=== PATIENT | male | born 1985 | race Caucasian/White ===

== ENCOUNTER 2022-06-11 14:28 | Emergency (ER) | payer BC | END 2022-06-11 15:50 | disposition home or self-care (01) | LOC: BURERS 14:28 | DX: J02.9 Acute pharyngitis, unspecified (principal); Z20.822 Contact with and (suspected) exposure to COVID-19 | CPT/HCPCS: 87081; 87430; 99283; U0003; U0005 ==

== ENCOUNTER 2022-06-16 07:30 | Emergency (ER) | payer BC ==
[2022-06-16] MEDS ORDERED: Dexamethasone 10 MG/ML VIAL ONE (07:53)
[2022-06-16 08:05] LABS: MONO NEGATIVE CONTROL ZONE White (Negative) (White); MONO POSITIVE CONTROL Pink Line (Positive) (PINK/RED); Mononucleosis NEGATIVE (NEGATIVE)
== END 2022-06-16 08:03 | disposition home or self-care (01) ==
LOC: BURERS 07:30
DX: J02.9 Acute pharyngitis, unspecified (principal)
CPT/HCPCS: 36415; 86308; 99283; J1100